=== PATIENT | male | born 1990 | race Caucasian/White ===

== ENCOUNTER 2017-08-29 10:16 | Emergency (ER) | payer MEDICARE, OTHER ==
[~2017-08-29] VITALS: Ht 182.9 cm; Wt 86.2 kg
[~2017-08-29 10:16] MED LIST: CYCL10 PO; HYDACE5 PO; IBUP600 PO; K-Dur20 MEQ PO; LEVSOD150 PO; LEVSOD75 PO; META800 PO; METHI10 PO; METO100ER PO; NAPR500 PO; Naprosyn500 MG PO; OLAN7.5 PO; PENVK500 PO; Percocet 5-3251 EACH PO; RISP1; TRAM50 PO; Ultram50 MG PO; Veetids 500500 MG PO; Vistaril50 MG PO
[2017-08-29] MEDS ORDERED: LEVSOD137 PO (10:22)
[2017-08-29] MEDS ORDERED: Mobic7.5 MG PO (11:41)
== END 2017-08-29 12:38 | disposition home or self-care (01) ==
LOC: ER 10:16
DX: R07.89 Other chest pain (principal); G89.29 Other chronic pain; Z76.5 Malingerer [conscious simulation]; Z79.899 Other long term (current) drug therapy; Z87.891 Personal history of nicotine dependence
CPT/HCPCS: 71046; 93005; 93010; 99283

== ENCOUNTER 2018-12-18 15:56 | Day surgery (SDC) | payer MEDICARE, OTHER ==
[~2018-12-18 15:56] MED LIST changes: +LEVSOD137 PO; +Mobic7.5 MG PO
--- NOTE | 2018-12-19 11:55 | NUR ---
PT DID NOT ARRIVE FOR INJECTION ON 12/18/18. [facility] OFFICE NOTIFIED OF NO SHOW.
== END 2018-12-18 22:42 | disposition home or self-care (01) ==
LOC: ATC 15:56
DX: Z53.8 Procedure and treatment not carried out for other reasons (principal)
CPT/HCPCS: J3240